=== PATIENT | male | born 1940 | race Caucasian/White ===

== ENCOUNTER 2016-12-18 18:16 | Inpatient (IN) | payer MEDICARE, MEDICAID ==
[~2016-12-18] VITALS: Ht 185.4 cm; Wt 113.6 kg
[~2016-12-18 18:16] MED LIST: ASCO500T8 PO; ATOR20TA PO; CARV25TA2 PO; CLOP75TA28 PO; FERR-83 PO; HYDR-3939 PO; INSLIS SUBQ; INSU100V7 SUBQ; IPRA0.2S51 IH; ISOS60TA PO; KEN1O TOPICAL; NEOM1PAC2 TOP; NYST60PO TP; SACC250C PO; SYMINH IH; TORS100T3 PO; TRAZ150T72 PO; Vancomycin PO; ZOLP10TA5 PO
--- NOTE | 2016-12-18 18:24 | ED.REPORT ---
HPI-General Illness Date of Service December 18, 2016 ED Provider: The patient is a 75 year old male with history of diabetes mellitus, osteomyelitis, coronary artery disease, hypertension, high cholesterol, chronic kidney disease, peripheral vascular disease, CHF, and COPD, who was brought to the emergency department by EMS for a wound to his left heel that he first noticed 2-3 weeks ago. He has noticed mild pain to the area of the wound. His daughter called Dr. Tanner who the patient has previously seen. Dr. Tanner recommended evaluation in the emergency department. He denies fever, chills, myalgias, nausea, vomiting or diarrhea. His sugars have been going up and down over the last week. Nursing Notes Stated Complaint: FEVER Nursing Notes Reviewed: Yes Allergies: Coded Allergies: No Known Allergies (Verified , 08/03/14) Scheduled ([Vancomycin]) 100 MG/ML ML 125 MG PO QID Ascorbic Acid (Vitamin C) 500 Mg Tablet 500 MG PO DAILY Atorvastatin (Lipitor) 20 Mg Tablet 20 MG PO HS Budesonide/Formoterol 160-4.5 mcg Inh (Symbicort 160-4.5 mcg Inh) 1 Puff Inha 1 PUFF IH BID Carvedilol (Carvedilol) 25 Mg Tablet 25 MG PO BID Clopidogrel (Clopidogrel) 75 Mg Tablet 75 MG PO DAILY Ferrous Sulfate (Ferrous Sulfate) 325 Mg Tablet 325 MG PO DAILY Hydralazine (Hydralazine) 25 Mg Tablet 25 MG PO TID Insulin Glargine (Lantus U100 Insulin Vial) 100 Unit/Ml Vial 35 UNIT SUBQ QAM Insulin Human Lispro (HumaLOG U100 Insulin Vial) 100 Unit/Ml Unit 10 UNIT SUBQ TIDAC Blood Sugar Lispro Correction <151 0 units 151-175 1 unit 176-200 2 units 201-225 3 units 226-250 4 units 251-275 5 units 276-300 6 units 301-325 7 units 326-350 8 units 351-375 9 units 376-400 10 units >400 12 units Check blood sugars before meals and at bedtime. Use correction factor only before meals. Ipratropium [place] (Ipratropium [place] Inhalant Solution) 0.2 Mg/1 Ml Solution 2.5 ML IH QID Isosorbide Mononitrate (Imdur) 60 Mg Tab.sr.24h 60 MG PO DAILY Nystatin (Nystop) 60 Gm Powder 60 GM TP BID Saccharomyces Boulardii (Florastor) 250 Mg Capsule 250 MG PO BID Torsemide (Torsemide) 100 Mg Tablet 100 MG PO BIDF Trazodone (Trazodone) 150 Mg Tablet 75 MG PO HS Triamcinolone Acet (Triamcinolone Acetonide Ointment) 1 Applic/0.25 Gm Oint 1 APPLIC TOPICAL TID Scheduled PRN Insulin Human Lispro (HumaLOG U100 Insulin Vial) 100 Unit/Ml Unit UNIT SUBQ SS PRN PRN hyperglycemia Blood Sugar Lispro Correction <151 0 units 151-175 1 unit 176-200 2 units 201-225 3 units 226-250 4 units 251-275 5 units 276-300 6 units 301-325 7 units 326-350 8 units 351-375 9 units 376-400 10 units >400 12 units Check blood sugars before meals and at bedtime. Use correction factor only before meals. Neomy Sulf/Bacitra/Polymyxin B (Triple Antibiotic Ointment) 1 Appl/0.9 Gm Packet 1 APPL TOP DAILY PRN PRN rash Zolpidem (Zolpidem) 10 Mg Tablet 10 MG PO HS PRN PRN For Insomnia General Time Seen by MD: 18:24 Chief Complaint Other (heel wound) Hx Obtained From: Patient, EMS Arrived By: Ambulance Sudden in Onset?: No Onset Occurred: More than a week ago... Symptom Duration: Since onset Location: : Foot left Quality: Painful Severity: Current: Mild Severity: Maximum: Mild Recent Healthcare: No recent hospitalization Similar Sx Previous: Yes Past Medical History Past Medical History Notes: PCP: Dr. Perkins Past Medical History 1. Coronary artery disease with history of bypass grafting. 2. Ischemic cardiomyopathy with ejection fraction 40%, status post AICD placement. 3. Chronic systolic congestive heart failure. 4. Peripheral vascular disease, status post right BKA and status post multiple angioplasty procedures to the left lower extremity. 5. Chronic left lower extremity wound followed, by Dr. Tanner [facility]. 6. Chronic kidney disease, reportedly stage 3. 7. Hypertension. 8. High cholesterol. 9. 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 10. Psoriasis. 11. MRSA bacteremia in May 2013 secondary to left lower extremity cellulitis. 12. Osteomyelitis, left 2nd toe, status post amputation May 2013. 13. Anemia. 14. COPD and chronic bronchitis, per records. 15. Chronically elevated troponin. 16. Hospitalization in December 2013 for hyperkalemia thought secondary to SOBIA inhibitor. 17. irregular heart beats Past Surgical History Right BKA 1. AICD placement in 2011. 2. Coronary artery bypass grafting in 2002. 3. Right below-knee amputation. 4. Left 2nd toe amputation. 5. Remote hernia surgery. 6. Back surgery. Family History Noncontributory Smoking History Former Smoker Social History Alcohol Use: Denies alcohol use Drug Use: Denies drug use Other Social History: Good social support, Local resident Review of Systems +elevated sugar levels, wound on left heel with discharge Full Review of Systems Constitutional: Denies: Chills, Fever GI: Denies: Diarrhea, Nausea, Vomiting Musculoskeletal: Reports: Extremity pain, Denies: Myalgia Complete sys rev & neg: except as marked. Physical Exam Vital Signs Vital Signs Date Time Temp Pulse Resp B/P Pulse Ox O2 Delivery O2 Flow Rate FiO2 12/18/16 18:25 36.1 78 16 162/76 96 Room Air Initial VS: Reviewed, Vital signs abnormal Head / Eyes: Atraumatic, Normocephalic, PERRL ENT: Mucous membranes moist, Conjunctiva normal, No scleral icterus Neck: Supple, Non-tender, Full range of motion Respiratory: Breath sounds normal, Clear to auscultation, No respiratory distress Cardiovascular: Regular rate & rhythm, Heart sounds normal, Intact distal pulses Abdomen / GI: Soft, Non-tender, No guarding, No rebound, No distention Extremities: Vascular intact Skin: Warm, Dry, No cyanosis Neurologic: Alert, Oriented, Nonfocal Psychiatric: Mood/affect normal, Behavior normal, Normal thought content General/Constitutional: Awake, Alert, Well appearing Lower Extremity / Pelvis / MS: Vascular intact Right BKA. Ankle / Foot: Vascular intact There is a left heel ulcer approximately 4 cm with additional surrounding erythema. Interpretation & Diagnostics Lab Results Interpretation Result Diagram: 12/18/16192812/18/161928 Test 12/18/16 18:41 12/18/16 19:29 12/18/16 19:59 Hold Urine Received (Received) White Blood Count 11.2th/mm3 (3.8-10.1) Red Blood Count 4.51mil/mm3 (4.40-5.80) Hemoglobin 12.4g/dL (13.8-17.2) Hematocrit 35.2% (41.0-50.0) Mean Corpuscular Volume 78.0fL (81-100) Mean Corpuscular Hemoglobin 27.5pg (27.0-35.0) Mean Corpuscular Hemoglobin Concent 35.2% (32.0-37.0) Red Cell Distribution Width 13.8% (12.3-15.4) Platelet Count 294bil/L (150-400) Neutrophils (%) (Auto) 73.0% (40-74) Lymphocytes (%) (Auto) 16.4% (14-46) Monocytes (%) (Auto) 8.2% (4-12) Eosinophils (%) (Auto) 1.8% (0-5) Basophils (%) (Auto) 0.4% (0-3) Erythrocyte Sedimentation Rate 75mm/hr (0-30) Prothrombin Time 10.7sec (8.1-12.5) Prothromb Time International Ratio 1.00ratio Sodium Level 137mEq/L (134-144) Potassium Level 4.3mEq/L (3.5-5.2) Chloride Level 96mEq/L (97-108) Carbon Dioxide Level 26mmol/L (18-29) Blood Urea Nitrogen 45mg/dL (8-27) Creatinine 1.67mg/dL (0.76-1.27) Estimat Glomerular Filtration Rate 43mL/min (>59) Glucose Level 105mg/dL (60-99) Lactic Acid Level 1.2mmol/L (0.4-2.0) Calcium Level 9.9mg/dL (8.5-10.1) Magnesium Level 2.0mg/dL (1.6-2.6) Total Bilirubin 0.4mg/dL (0.0-1.2) Aspartate Amino Transf (AST/SGOT) 22U/L (0-50) Alanine Aminotransferase (ALT/SGPT) 24U/L (0-44) Alkaline Phosphatase 180U/L (25-160) Total Protein 8.2g/dL (6.4-8.4) Albumin 3.9g/dL (3.4-5.0) Urine Color Straw (YELLOW) Urine Appearance Hazy (CLEAR,HAZY) Urine pH 6.0 (5.0-8.0) Urine Specific [place] 1.015 (1.003-1.035) Urine Protein Tracemg/dL (NEG,TRACE) Urine Glucose (UA) 100mg/dL (NEGATIVE) Urine Ketones Negativemg/dL (NEGATIVE) Urine Occult Blood Small (NEGATIVE) Urine Nitrite Negative (NEGATIVE) Urine Bilirubin Negative (NEGATIVE) Urine Ictotest Negative (Negative) Urine Urobilinogen Normalmg/dL (NORMAL) Urine Leukocyte Esterase Large (NEGATIVE) Urine RBC 0-2/hpf (0-2) Urine WBC 11-50/hpf (0-5) Urine Epithelial Cells None/hpf (NONE-MOD) Urine Crystals None seen (NONE SEEN) Urine Bacteria Few/hpf (NONE-FEW) Urine Hyaline Casts None/lpf (NONE) Urine Granular Casts None seen (NONE SEEN) Urine Waxy Casts None seen (NONE SEEN) Urine Red Blood Cell Casts None seen (NONE SEEN) Urine White Blood Cell Casts None seen (NONE SEEN) Urine Mucus None seen (None Seen) Urine Trichomonas None seen (NONE SEEN) Urine Yeast None (NONE SEEN) Urinalysis Comment None Urine Culture Reflexed Indicated X-Ray Interpretation Xray Interpretation: IMPRESSION: 1. Chronic osteomyelitis sequelae involving the first digit. 2. No evidence of active osteomyelitis involving the heel. Bone scan can be performed for further assessment, if clinically indicated. Dictated by: Shivam Rios M.D. on 12/18/2016 at 19:08 X-Ray Ordered: Foot left Interpretation / Wet Read by: Interpret - Radiologist Re-Eval/Medical Decision Med Decision/Clinical Course The patient presents with worsening of his left heel ulcer. He has signs of cellulitis, at this point is to sign of osteomyelitis. The patient will need debridement of the wound and IV antibiotics. Source of Hx: Old records, EMS, Family Time of Eval: 20:30 Re-Evaluation/Progress Note: Discussed plan for admission. All questions were addressed. Consultation #1: Referral / Consult Name: Edwin Kuo DPM Call Returned at: 20:13 [employer]: Will see patient Note: Spoke with podiatry. Someone will see the patient in the morning. Consultation #2: Referral / Consult Name: Leisa Butcher DO Consulted With: Hospitalist Call Returned at: 21:05 [employer]: Will see patient, Agrees with eval, Agrees with plan, Accepts admit Counseled Regarding: Diagnosis, Lab results, Need for admission Discharge & Departure Primary Impression: Foot ulcer, left Non-pressure ulcer stage: unspecified non-pressure ulcer stage Qualified Code : L97.529 - Non-pressure chronic ulcer of other part of left foot with unspecified severity Additional Impressions: Cellulitis Site of cellulitis: extremity Site of cellulitis of extremity: lower extremity Laterality: left Qualified Code: L03.116 - Cellulitis of left lower limb Renal insufficiency Disposition: ADMITTED TO HOSPITAL Discharge Condition All VS Reviewed: Yes Condition: Stable Referrals: Sherry Perkins MD (PCP) Yenni Tanner DPM Scribe Attestation Portions of this note were transcribed by Quynh Piña. I, Dr. Giordano personally performed the history, physical exam and medical decision-making; I reviewed and confirmed the accuracy of the information in the transcribed note. Signed by: Cristian Isabel, 12/18/2016 at 2110. copies to: Yenni Tanner DPM; Sherry Perkins MD, Jena M MD December 18, 2016 18:24 Quynh Piña December 18, 2016 18:41
[2016-12-18 18:25] VITALS: BP 162/76; PULSE 78; RESP 16; O2SAT 96
[2016-12-18] MEDS ORDERED: Piperacillin-Tazo 3.375 Gm Inj 3.375 GM in Dextrose 5% Minibag Plus 50 ML IV ONE (18:40)
[2016-12-18] MEDS ORDERED: Vancomycin Dose per Pharmacist XX ONE (18:40)
[2016-12-18] MEDS ORDERED: Vancomycin Inj 1,750 MG in 0.9% Sodium Chloride 500 ML IV ONE (19:10)
--- NOTE | 2016-12-18 19:11 | DRSVH ---
PROCEDURE: X-RAY LEFT FOOT, TWO VIEWS ([id number]) INDICATIONS: heel infection TECHNIQUE: 3 views of the foot were acquired. COMPARISON: [facility], CR, XR FOOT 3VW LT, 09/30/2015, 10:38. [facility], CR, XR FOOT 3VW LT, 07/05/2015, 13:04. FINDINGS: Bones: No fractures or dislocations. Status post resection of the second and third digits. Arthrodes is of the first metatarsal phalangeal joint. Interphalangeal joint of first digit not well-seen. Soft tissues: No tibiotalar joint effusion. Achilles tendon appears normal. IMPRESSION: 1. Chronic osteomyelitis sequelae involving the first digit. 2. No evidence of active osteomyelitis involving the heel. Bone scan can be performed for further ass essment, if clinically indicated. Dictated by: Shivam Rios M.D. on 12/18/2016 at 19:08 Approved by: Shivam Rios M.D. on 12/18/2016 at 19:09
[2016-12-18 19:37] LABS: BASOPHILS % (AUTO) 0.4 % (0-3); EOSINOPHILS % (AUTO) 1.8 % (0-5); MONOCYTES % (AUTO) 8.2 % (4-12); Mean Corpuscular Hemoglobin 27.5 pg (27.0-35.0); Platelet Count 294 bil/L (150-400)
[2016-12-18] MEDS ORDERED: 0.9% Sodium Chloride 100 ML ONE (19:52)
[2016-12-18 20:37] LABS: ERYTHROCYTE SEDIMENTATION RATE 75 mm/hr (0-30)
[2016-12-18 20:47] LABS: APPEARANCE,URINE HAZY (CLEAR,HAZY); COLOR,URINE STRAW (YELLOW)
[2016-12-18 20:48] LABS: OCCULT BLOOD,URINE SMALL (NEGATIVE)
[2016-12-18 20:49] LABS: ICTOTEST,URINE NEGATIVE (Negative)
[2016-12-18 20:50] LABS: UROBILINOGEN,URINE NORMAL (NORMAL)
[2016-12-18] MEDS ORDERED: 0.9% Sodium Chloride 1,000 ML IV SCH (22:09)
[2016-12-18] MEDS ORDERED: Polyethylene Glycol (PEG) 17 Gm Powder PO PRN (22:10)
[2016-12-18] MEDS ORDERED: Ondansetron 2 mg/mL 2 mL Inj IVPUSH PRN (22:10)
[2016-12-18] MEDS ORDERED: Alum-Mag Hydrox-Simeth 30 mL Suspension PO PRN (22:10)
[2016-12-18 22:26] VITALS: BP 115/41; PULSE 70; O2SAT 95
[2016-12-18 23:06] VITALS: BP 133/73; PULSE 73; RESP 18; O2SAT 95
--- NOTE | 2016-12-18 23:09 | PCM.HPMED ---
Subjective Date of Service December 18, 2016 Primary Provider: Admitting Physician: Leisa Butcher DO Primary Care Physician: Nawaf Encinas MD Attending Physician: Leisa Butcher DO Admit Status: From the Emergency Department Chief Complaint: left foot pain History of Present Illness: 75 year old male with history of T2DM, Chronic osteomyelitis, CAD s/p CABG, HTN , chronic kidney disease, peripheral vascular disease, Right BKA, CHF, and COPD , who presented to the ED by EMS for evaluation of left heel ulcer x 2-3 weeks. Patient reports he noticed the ulcer a few weeks ago, but it recently became more painful so he reports his daughter called Dr. Tanner, his shift superintendent, who recommended patient go to the ER for further evaluation. Patient denies any associated fevers, chills, myalgias, nausea vomiting, or diarrhea. He currently uses a wheelchair for transportation and does use his left foot for transferring. He reports that his diabetes has been somewhat labile lately. He states he has been compliant with his insulin regimen, but notes that his sugars will be occasionally above 300. He has not seen his PCP, Dr. Encinas, lately, and does not remember what his last A1c was. He has not had any chest pain or increased shortness of breath. He reports he is eating and drinking well and denies any urinary symptoms. Review of Systems: complete review of system obtained and neg except as stated in history of present illness Allergies Coded Allergies: No Known Allergies (Verified , 08/03/14) Home Medications Vitamin C Atorvastatin 20 mg Symbicort twice a day Carvedilol 25 mg twice a day Clopidogrel daily Ferrous sulfate 325 mg daily Hydralazine 25 mg 3 times a day Insulin glargine 35 units subcutaneous every a.m. Insulin Humalog 10 units subcutaneous 3 times a day before meals Ipratropium 4 times a day Imdur 60 mg daily Nystatin powder twice a day Floor store tour 50 mg by mouth twice a day Torsemide 100 mg twice a day Trazodone 75 mg daily at bedtime Zolpidem 10 mg by mouth at bedtime when necessary PMH PCP: Dr. Encinas 1. Coronary artery disease with history of bypass grafting. 2. Ischemic cardiomyopathy with ejection fraction 40%, status post AICD placement. 3. Chronic systolic congestive heart failure. 4. Peripheral vascular disease, status post right BKA and status post multiple angioplasty procedures to the left lower extremity. 5. Chronic left lower extremity wound followed, by Dr. Tanner [facility]. 6. Chronic kidney disease, reportedly stage 3. 7. Hypertension. 8. High cholesterol. 9. 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 10. Psoriasis. 11. MRSA bacteremia in May 2013 secondary to left lower extremity cellulitis. 12. Osteomyelitis, left 2nd toe, status post amputation May 2013. 13. Anemia. 14. COPD and chronic bronchitis, per records. 15. Chronically elevated troponin. 16. Hospitalization in December 2013 for hyperkalemia thought secondary to SOBIA inhibitor. 17. irregular heart beats Surgical History 1. AICD placement in 2011. 2. Coronary artery bypass grafting in 2002. 3. Right below-knee amputation. 4. Left 2nd toe amputation. 5. Remote hernia surgery. 6. Back surgery. Family History Famhx of diabetes Social History Hx Alcohol Use: No Hx Substance Use: No Hx Tobacco Use: No Smoking Status: Former Smoker Living Arrangement: Alone Additional Information Lives in an apartment in [place]. He reports he cooks and cleans for himself and also administers his own medication Exam Vital Signs Vital Sign - Last Date Time Temp Pulse Resp B/P Pulse Ox O2 Delivery O2 Flow Rate FiO2 12/18/16 18:25 36.1 78 16 162/76 96 Room Air Exam Gen: Obese unkempt male laying in bed who appears in no acute distress, alert and oriented 3 HEENT: PERRLA, EOMI, oropharynx moist and pink, no dentition Neck: Soft, nontender, trachea midline CV: Regular rate and rhythm with soft systolic murmur, peripheral pulses intact in the upper extremities and equal Respiratory: CTA B, the wheezing or rhonchi, normal respiratory effort Abdomen: Soft, obese, nontender, nondistended, no rashes noted, NABS MSK: Right BKA, muscle strength grossly intact in other extremities, No swollen or tender joints Extr: left second digit amputation, DP pulse palpable, diffuse dry thickened skin with flaking, small scab on the anterior pérez, left posterior heel with 2- 3 cm ulcer with serosanguineous drainage, there is also mild periwound erythema , moderately tender to palpation, no exposed bone noted Neuro: Grossly intact, no focal weakness, light sensation intact in distal extremities Skin: Warm, dry, no other rashes besides heel ulcer Psychiatric: Appropriate mood and affect, linear thought process Lab and Diagnostics Result Diagram: 12/18/16192812/18/161928 X-Rays, CTs and MRIs PROCEDURE: X-RAY LEFT FOOT, TWO VIEWS ([id number]) IMPRESSION: 1. Chronic osteomyelitis sequelae involving the first digit. 2. No evidence of active osteomyelitis involving the heel. Bone scan can be performed for further assessment, if clinically indicated. Assessment & Plan 75 year old male with history of T2DM, Chronic osteomyelitis, CAD s/p CABG, HTN , chronic kidney disease, peripheral vascular disease, Right BKA, CHF, and COPD , who presented to the ED by EMS for evaluation of left heel ulcer x 2-3 weeks. #Left heel Ulcer with likely cellulitis, Present on Admission Podiatry has been notified and will evaluate patient in the morning. Vital signs are stable, patient does not meet sepsis criteria IV Zosyn and IV vancomycin initiated in the ED on December 18. We will plan to continue for now Wound cultures and blood cultures pending Contact precautions We will keep nothing by mouth after midnight just in case any debridement under anesthesia is required. Resume healthy/diabetic diet if no procedures required. #Possible Complicated UTI, POA Patient's urine analysis today showed large LE, and 11-50 white blood cell. Patient denies any urinary symptoms. Urine culture pending We will continue with Zosyn for now and tailor antibiotics as VIN returns. Will need antibiotics for total of 7 days #T2DM, POA Patient reports that his blood sugars have been labile recently. Check hemoglobin A1c Placed on high-dose insulin correctional scale and continue patient's 35 units of Lantus daily. Recommend diabetic education and nutrition consult #Chronic Renal Insufficiency, POA Patient's creatinine levels range between 1.3-1.6 in the past. Will plan to hydrate cautiously due to CHF history. IV NS at 75mls/hr Avoid nephrotoxic medications if possible #CAD, POA No complaints of chest pain. Will plan to resume patient's home meds once Med Rec is performed. Placed on Telemetry for CV monitoring. #Systolic CHF, POA No complains of SOB today. Benign lung exam. Continue to monitor I/Os Resume home meds #COPD, POA Will resume home inhalers Keep O2 saturations between 88-92% #History of MRSA in wounds, POA Contact Precautions ordered CODE STATUS: Full resuscitation Disposition: Patient is admitted under observation status with expected length of stay less than 2 nights due to risk of adverse effects and medical complexity Pain Evaluation: Adequate Pain Control VTE Prophylaxis: Sub-Q Heparin (Unfractionated), SCDs Resuscitation Status: CPR: Attempt Resuscitation Attending Statement The patient was seen and examined together with house staff on 12/18/2016 and I agree with the history, exam and plan as outlined in the note above. Loy Boswell DO December 18, 2016 21:39 Leisa Butcher DO December 19, 2016 05:01
[2016-12-18] MEDS ORDERED: Glucose 40% Oral Gel 15 Gm Tube PO PRN (23:10)
[2016-12-19] VITALS (10 sets, daily range): BP systolic 132–152; BP diastolic 67–72; PULSE 60–75; RESP 16–20; O2SAT 93–97
[2016-12-19] MEDS: Sodium Chloride LOK Flush 10 mL Syringe IVFLUSH SCH ×3 (00:30→16:45)
[2016-12-19] MEDS ORDERED: CARV25TA2 PO (00:32)
[2016-12-19] MEDS ORDERED: INSU100V7 SUBQ (00:38)
[2016-12-19] MEDS ORDERED: TORS100T3 PO (00:46)
[2016-12-19] MEDS ORDERED: TORS20TA3 PO (00:47)
[2016-12-19] MEDS: Heparin 5,000 Unit/mL Inj SUBQ SCH ×3 (01:08→16:47)
[2016-12-19] MEDS ORDERED: Albuterol-Ipratropium 3 mL Inhalation Solution NEB PRN (01:20)
[2016-12-19 06:41] LABS: BASOPHILS % (AUTO) 0.4 % (0-3); EOSINOPHILS % (AUTO) 3.2 % (0-5); MONOCYTES % (AUTO) 10.3 % (4-12); Mean Corpuscular Volume 80.7 fL (81-100); NEUTROPHILS % (AUTO) 69.5 % (40-74); Platelet Count 234 bil/L (150-400)
--- NOTE | 2016-12-19 07:06 | PCM.CONPHA ---
Subjective Date of Service: December 19, 2016 Requesting Provider: Loy Boswell DO left foot pain History of Present Illness diabetic foot cellulitis Reason for Pharmacy Consult: Vancomycin Dosing Objective Assessment/Plan Assessment/Plan A/ - 75 y/o male patient admitted in late last night for diabetic foot cellulitis. He has hx of CKD, DM, chronic osteomyelitis, MRSA bacteremia (2012) . Vancomycin ordered for empirical coverage - Afebrile, WBC: 11.2; foot gel-swab showed many Gram positive; Urine and Blood cultures (x2) are pending - Comitant antibiotic: Zosyn - In ED, received loading dose of Vancomycin 1750mg @1900 12/18 P/ - Give Vancomycin 750mg iv q12h. Trough level ordered before 3rd dose @1900 on 12/19. Pharmacy will follow and make necessary adjustment Thank you for consulting clinical pharmacy in the care of this patient Pamella Anthony December 19, 2016 06:52
[2016-12-19] MEDS: Vancomycin Inj 750 MG in 0.9% Sodium Chloride 250 ML IV SCH ×2 (07:58→20:15)
[2016-12-19] MEDS: Insulin LISPRO 300 Unit/3 mL Inj SUBQ SCH ×4 (08:00→22:00)
[2016-12-19] MEDS: Insulin GLARgine 100 Unit/mL Syringe SUBQ SCH (08:30)
[2016-12-19] MEDS: Vancomycin Dose per Pharmacist XX SCH (08:30)
[2016-12-19 08:53] LABS: ERYTHROCYTE SEDIMENTATION RATE 69 mm/hr (0-30)
--- NOTE | 2016-12-19 09:29 | PCM.PNMED ---
Subjective Date of Service December 19, 2016 Subjective Patient states daughter called the office, they told his daughter to send the patient to the ER. He has no fevers and chills. Dr. Tanner is debriding the foot in the room. She has no plans to take him to the OR today as she does not feel it is necessary, patient appeared apparently has lost contact with Dr. Tavarez the last few months. Dr. Tanner will be doing the wound care herself today and tomorrow, she may consider wound care consult later on. Patient states that is not nauseated, has minimal pain. No other concerns Exam Vital Signs Vital Sign - Last Date Time Temp Pulse Resp B/P Pulse Ox O2 Delivery O2 Flow Rate FiO2 12/19/16 09:16 70 12/19/16 05:43 18 96 Room Air 12/19/16 04:31 36.5 145/71 Intake and Output 12/18/16 12/18/16 12/19/16 Cumulative From/Thru 15:00 23:00 07:00 12/18/16 18:25 - 12/19/16 06:06 Intake Total 100 ml 412 ml 512 ml Output Total 850 ml 850 ml Balance 100 ml -438 ml -338 ml Intake IV Total 100 ml 412 ml 512 ml Output Urine Total 850 ml 850 ml # Bowel Movements 0 0 Exam Physical exam: Gen.: No acute distress laying in bed, absent right lower extremity HEENT: Normocephalic, tympanic Heart: Regular rhythm and rate, no S3-S4 murmurs Lungs: Clear to auscultation anteriorly and wheezes l extremities : Lef tlower leg is very slightly pink, no warmth or swelling, sloughing is noted, no edema. Absent toes 2 and 3. Heel ulcer about 4 cm, nondraining Psych: Negative anxiety Neuro: No focal deficits IVs and Medications IV Fluids normal saline 75 cc/hr Medications Reviewed: Medications were reviewed in detail Lab and Diagnostics Result Diagram: 12/19/1661612/19/16616 X-Rays, CTs and MRIs PROCEDURE: X-RAY LEFT FOOT, TWO VIEWS ([id number]) IMPRESSION: 1. Chronic osteomyelitis sequelae involving the first digit. 2. No evidence of active osteomyelitis involving the heel. Bone scan can be performed for further assessment, if clinically indicated. Assessment & Plan 75 year old male with history of T2DM, Chronic osteomyelitis, CAD s/p CABG, HTN , chronic kidney disease, peripheral vascular disease, Right BKA, CHF, and COPD , who presented to the ED by EMS for evaluation of left heel ulcer x 2-3 weeks. #Left heel Ulcer with likely cellulitis, Present on Admission Podiatry has been notified and will evaluate patient in the morning. Vital signs are stable, patient does not meet sepsis criteria IV Zosyn and IV vancomycin initiated in the ED on December 18. We will plan to continue for now Wound cultures and blood cultures pending Dr. Tavarez has seen the patient no plans to take him to the OR: Diet and home medications are resumed We will follow the cultures from ER as well as Dr. lopez debridement Chronic osteomyelitis: CT showed chronic osteo in first toe -- Antibiotics as above -- We will follow the cultures Heatt, lings anteriorly Pressure ulcer on heal Dr. Tanner wants to f/u herself and she will order wound care as needed. #Possible Complicated UTI, POA Patient's urine analysis today showed large LE, and 11-50 white blood cell. Patient denies any urinary symptoms. Urine culture pending We will continue with Zosyn for now and tailor antibiotics as VIN returns. Will need antibiotics for total of 7 days #T2DM, POA -Patient reports that his blood sugars have been labile recently. -Check hemoglobin A1c -Placed on high-dose insulin correctional scale and continue patient's 35 units of Lantus daily. -Recommend diabetic education and nutrition consult #Chronic Renal Insufficiency, POA Patient's creatinine levels range between 1.3-1.6 in the past. Will plan to hydrate cautiously due to CHF history. IV NS at 75mls/hr Avoid nephrotoxic medications if possible #CAD, POA No complaints of chest pain. Will plan to resume patient's home meds once Med Rec is performed. Placed on Telemetry for CV monitoring. #Systolic CHF, POA No complains of SOB today. Benign lung exam. Continue to monitor I/Os Resume home meds #COPD, POA Will resume home inhalers Keep O2 saturations between 88-92% #History of MRSA in wounds, POA Contact Precautions ordered CODE STATUS: Full resuscitation Disposition: Patient is admitted under observation status with expected length of stay less than 2 nights due to risk of adverse effects and medical complexity Pain Evaluation: Adequate Pain Control VTE Prophylaxis: Sub-Q Heparin (Unfractionated), SCDs Resuscitation Status: CPR: Attempt Resuscitation Alaina Garcia DO December 19, 2016 09:29
[2016-12-19] MEDS: Piperacillin-Tazo 3.375 Gm Inj 3.375 GM in Dextrose 5% Minibag Plus 50 ML IV SCH ×2 (09:47→22:09)
--- NOTE | 2016-12-19 10:16 | PCM.CHPPOD ---
Subjective Date of service December 19, 2016 History of Present Illness Patient reports seeing a small ulcer on the posterolateral heel (his usual resting spot) about 2 weeks ago. It kept getting larger. He has failed to follow up with me for preventive care after wound healing in the past. He has noticed some pain in the wound area. He had some pain and swelling in his calf and it worried him due to history of CHF and previous trips to the hospital with severe exacerbations. Allergy Allergies: Coded Allergies: No Known Allergies (Verified , 08/03/14) Medications Blood Thinners: Aspirin, Plavix Atorvastatin (Lipitor) 20 Mg Tablet 20 MG PO HS Carvedilol (Carvedilol) 25 Mg Tablet 25 MG PO DAILY Clopidogrel (Clopidogrel) 75 Mg Tablet 75 MG PO DAILY Ferrous Sulfate (Ferrous Sulfate) 325 Mg Tablet 325 MG PO DAILY Hydralazine (Hydralazine) 25 Mg Tablet 25 MG PO TID Insulin Glargine (Lantus U100 Insulin Vial) 100 Unit/Ml Vial 40 UNIT SUBQ DAILY Insulin Human Lispro (HumaLOG U100 Insulin Vial) 100 Unit/Ml Unit 10 UNIT SUBQ TIDAC Blood Sugar Lispro Correction <151 0 units 151-175 1 unit 176-200 2 units 201-225 3 units 226-250 4 units 251-275 5 units 276-300 6 units 301-325 7 units 326-350 8 units 351-375 9 units 376-400 10 units >400 12 units Check blood sugars before meals and at bedtime. Use correction factor only before meals. Insulin Human Lispro (HumaLOG U100 Insulin Vial) 100 Unit/Ml Unit UNIT SUBQ SS PRN PRN hyperglycemia Blood Sugar Lispro Correction <151 0 units 151-175 1 unit 176-200 2 units 201-225 3 units 226-250 4 units 251-275 5 units 276-300 6 units 301-325 7 units 326-350 8 units 351-375 9 units 376-400 10 units >400 12 units Check blood sugars before meals and at bedtime. Use correction factor only before meals. Torsemide (Torsemide) 100 Mg Tablet 100 MG PO DAILY Torsemide (Torsemide) 20 Mg Tablet 20 MG PO DAILY Trazodone (Trazodone) 150 Mg Tablet 75 MG PO HS Past Medical History Reviewed Admit H&P dictated by: Dr. Garcia Surgeries: Yes (BKA, lami, hernia, heart surgery) Medical History: (1) CHRONIC SYSTOLIC HRT FAILURE (2) Congestive heart failure (3) Clostridium difficile colitis (4) Renal insufficiency (5) Cellulitis (6) Foot ulcer, left (7) PRESSURE ULCER, HEEL (8) CHR ISCHEMIC HRT DIS NEC Surgical History: Social History Hx Alcohol Use: No Hx Substance Use: No Hx Tobacco Use: No Smoking Status: Former Smoker Podiatry Consult Exam Vital Signs Vital Sign - Last Date Time Temp Pulse Resp B/P Pulse Ox O2 Delivery O2 Flow Rate FiO2 12/19/16 09:16 70 12/19/16 05:43 18 96 Room Air 12/19/16 04:31 36.5 145/71 Intake and Output 12/18/16 12/18/16 12/19/16 Cumulative From/Thru 15:00 23:00 07:00 12/18/16 18:25 - 12/19/16 06:06 Intake Total 100 ml 412 ml 512 ml Output Total 850 ml 850 ml Balance 100 ml -438 ml -338 ml Intake IV Total 100 ml 412 ml 512 ml Output Urine Total 850 ml 850 ml # Bowel Movements 0 0 Result Diagram: 12/19/1617 12/19/1617 Lab Test 12/18/16 18:41 12/18/16 19:29 12/18/16 19:59 12/19/16 06:17 Hold Urine Received (Received) Prothrombin Time 10.7sec (8.1-12.5) Prothromb Time International Ratio 1.00ratio Lactic Acid Level 1.2mmol/L (0.4-2.0) Magnesium Level 2.0mg/dL (1.6-2.6) Total Bilirubin 0.4mg/dL (0.0-1.2) Aspartate Amino Transf (AST/SGOT) 22U/L (0-50) Alanine Aminotransferase (ALT/SGPT) 24U/L (0-44) Alkaline Phosphatase 180U/L (25-160) Total Protein 8.2g/dL (6.4-8.4) Albumin 3.9g/dL (3.4-5.0) Urine Color Straw (YELLOW) Urine Appearance Hazy (CLEAR,HAZY) Urine pH 6.0 (5.0-8.0) Urine Specific [place] 1.015 (1.003-1.035) Urine Protein Tracemg/dL (NEG,TRACE) Urine Glucose (UA) 100mg/dL (NEGATIVE) Urine Ketones Negativemg/dL (NEGATIVE) Urine Occult Blood Small (NEGATIVE) Urine Nitrite Negative (NEGATIVE) Urine Bilirubin Negative (NEGATIVE) Urine Ictotest Negative (Negative) Urine Urobilinogen Normalmg/dL (NORMAL) Urine Leukocyte Esterase Large (NEGATIVE) Urine RBC 0-2/hpf (0-2) Urine WBC 11-50/hpf (0-5) Urine Epithelial Cells None/hpf (NONE-MOD) Urine Crystals None seen (NONE SEEN) Urine Bacteria Few/hpf (NONE-FEW) Urine Hyaline Casts None/lpf (NONE) Urine Granular Casts None seen (NONE SEEN) Urine Waxy Casts None seen (NONE SEEN) Urine Red Blood Cell Casts None seen (NONE SEEN) Urine White Blood Cell Casts None seen (NONE SEEN) Urine Mucus None seen (None Seen) Urine Trichomonas None seen (NONE SEEN) Urine Yeast None (NONE SEEN) Urinalysis Comment None Urine Culture Reflexed Indicated White Blood Count 9.1th/mm3 (3.8-10.1) Red Blood Count 4.04mil/mm3 (4.40-5.80) Hemoglobin 11.3g/dL (13.8-17.2) Hematocrit 32.6% (41.0-50.0) Mean Corpuscular Volume 80.7fL (81-100) Mean Corpuscular Hemoglobin 28.0pg (27.0-35.0) Mean Corpuscular Hemoglobin Concent 34.7% (32.0-37.0) Red Cell Distribution Width 13.8% (12.3-15.4) Platelet Count 234bil/L (150-400) Neutrophils (%) (Auto) 69.5% (40-74) Lymphocytes (%) (Auto) 16.5% (14-46) Monocytes (%) (Auto) 10.3% (4-12) Eosinophils (%) (Auto) 3.2% (0-5) Basophils (%) (Auto) 0.4% (0-3) Erythrocyte Sedimentation Rate 69mm/hr (0-30) Sodium Level 138mEq/L (134-144) Potassium Level 3.7mEq/L (3.5-5.2) Chloride Level 99mEq/L (97-108) Carbon Dioxide Level 27mmol/L (18-29) Blood Urea Nitrogen 40mg/dL (8-27) Creatinine 1.65mg/dL (0.76-1.27) Estimat Glomerular Filtration Rate 44mL/min (>59) Glucose Level 109mg/dL (60-99) Calcium Level 9.2mg/dL (8.5-10.1) C-Reactive Protein 0.9mg/dL (0.0-0.5) Exam General: Alert, Oriented X3, Cooperative, No Acute Distress Lower Extremities: Left: Extremity pale Extremity warm Lower Extremity Pulses: Absent: Left Dorsalis Pedis Left Posterior Tibal Podiatry WOUND : Wound Location/Description Right BKA amputation stump intact. Left medial distal foot ulcer healed. His skin is dry and flaky, built up around toes, toenails significantly elongated and loose, remaining 1st, 4th, and 5th digits. Left heel ulcer measures 3cm x 2cm in size, necrotic base, small superficial subcutaneous abscess with purulent drainage. Mild odor. Periwound erythema. No lymphangitis. Healed abrasion on anterior left leg. Assessment & Plan Problems: (1) Onycholysis of toenail Plan: I cleaned ample debris under and around his toenails. I will debride the nails tomorrow. He may end up with a full avulsion of the hallux nail. Status: Acute ICD Code: L60.1 (2) Pressure ulcer, heel, left, unstageable Plan: I prepped the wound with Hibiclens and excisionally debrided the left heel ulcer with a #15 scalpel through skin and subcutaneous tissue. Final measurements 3cm x 2.7cm, 0.3cm deep. Bleeding base achieved. Some central necrosis remains and will need to be secondarily debrided after offloading is achieved tomorrow. Heel offloading foam boot ordered. A swab of the purulent material was sent to lab for culture. I suspect possible enterococcal or streptococcal organism. Wound was thoroughly cleansed with Hibiclens and saline , dressed with wound gel on gauze, Foam window, and Kerlix, heel floated on pillows. Status: Acute ICD Code: L89.620 (3) DM (diabetes mellitus) type I uncontrolled, periph vascular disorder Plan: Tight blood glucose control will be essential here and at home. NPO status discontinued. Patient will be seen again tomorrow. Plan on another 24-48 hours inpatient for antibiotics and to get cultures back. Status: Acute ICD Code: E10.51 (4) Hyperkalemia Onset Date: 05/01/2014 Status: Acute ICD Code: E87.5 VTE Prophylaxis: Sub-Q Heparin (Unfractionated), SCDs Pea, Yenni S DPM December 19, 2016 10:16
[2016-12-19] MEDS ORDERED: Vancomycin Serum Trough XX ONE (19:00)
--- NOTE | 2016-12-19 20:39 | PCM.PHAPRO ---
Progress left foot pain VANCOMYCIN DOSING PER PHARMACY DOSE: 750 MG Q12H TROUGH: 16.6 CULTURE: PENDING SCr: 1.65 A/P -Therapeutic level drawn prior to 3rd administered dose. -Will draw trough / @ 0700 to monitor for accumulation since not drawn at true steady state level. -Will monitor SCr and cultures daily Yuniel Azar, PharmD Yuniel Azar December 19, 2016 20:38
[2016-12-20] VITALS (7 sets, daily range): BP systolic 112–162; BP diastolic 58–76; PULSE 64–74; RESP 16–20; O2SAT 93–97
[2016-12-20] MEDS: Sodium Chloride LOK Flush 10 mL Syringe IVFLUSH SCH ×4 (00:22→23:46)
[2016-12-20] MEDS: Heparin 5,000 Unit/mL Inj SUBQ SCH ×3 (01:19→18:05)
[2016-12-20] MEDS: Insulin GLARgine 100 Unit/mL Syringe SUBQ SCH (08:06)
[2016-12-20 08:09] LABS: Mean Corpuscular Hemoglobin 27.4 pg (27.0-35.0); Mean Corpuscular Volume 81.6 fL (81-100)
[2016-12-20] MEDS: Insulin LISPRO 300 Unit/3 mL Inj SUBQ SCH ×4 (08:21→21:51)
[2016-12-20] MEDS: Piperacillin-Tazo 3.375 Gm Inj 3.375 GM in Dextrose 5% Minibag Plus 50 ML IV SCH ×2 (08:24→21:46)
[2016-12-20] MEDS: Vancomycin Dose per Pharmacist XX SCH (08:24)
--- NOTE | 2016-12-20 17:45 | PCM.PNPOD ---
Subjective Date of Service: December 20, 2016 Visit Information: Reason for Visit Left Heel Ulcer With Cellulitis Surgery/Surgery Date Debridement of left heel ulcer, 12/19/2016 Date of Admission: December 18, 2016 at 21:28 Subjective: Patient reports no issues with the heel today, but some sharp and intense pain in his left great toe without swelling or redness. Objective Vital Sign - Last Date Time Temp Pulse Resp B/P Pulse Ox O2 Delivery O2 Flow Rate FiO2 12/20/16 10:44 64 12/20/16 08:15 16 97 Room Air 12/20/16 08:00 36.7 151/76 Intake and Output 12/19/16 12/19/16 12/20/16 Cumulative From/Thru 15:00 23:00 07:00 12/18/16 18:25 - 12/20/16 06:15 Intake Total 1451 ml 899 ml 2862 ml Output Total 2025 ml 1025 ml 3900 ml Balance -574 ml -126 ml -1038 ml Intake Oral 1060 ml 525 ml 1585 ml IV Total 391 ml 374 ml 1277 ml Output Urine Total 2025 ml 1025 ml 3900 ml # Bowel Movements 0 0 0 Result Diagram: 12/20/16 0753 12/19/16 0617 Lab Test 12/18/16 18:41 12/18/16 19:29 12/18/16 19:59 12/19/16 06:17 Hold Urine Received (Received) Prothrombin Time 10.7sec (8.1-12.5) Prothromb Time International Ratio 1.00ratio Hemoglobin A1c 7.7% (4.8-5.6) Lactic Acid Level 1.2mmol/L (0.4-2.0) Magnesium Level 2.0mg/dL (1.6-2.6) Total Bilirubin 0.4mg/dL (0.0-1.2) Aspartate Amino Transf (AST/SGOT) 22U/L (0-50) Alanine Aminotransferase (ALT/SGPT) 24U/L (0-44) Alkaline Phosphatase 180U/L (25-160) Total Protein 8.2g/dL (6.4-8.4) Albumin 3.9g/dL (3.4-5.0) Urine Color Straw (YELLOW) Urine Appearance Hazy (CLEAR,HAZY) Urine pH 6.0 (5.0-8.0) Urine Specific [place] 1.015 (1.003-1.035) Urine Protein Tracemg/dL (NEG,TRACE) Urine Glucose (UA) 100mg/dL (NEGATIVE) Urine Ketones Negativemg/dL (NEGATIVE) Urine Occult Blood Small (NEGATIVE) Urine Nitrite Negative (NEGATIVE) Urine Bilirubin Negative (NEGATIVE) Urine Ictotest Negative (Negative) Urine Urobilinogen Normalmg/dL (NORMAL) Urine Leukocyte Esterase Large (NEGATIVE) Urine RBC 0-2/hpf (0-2) Urine WBC 11-50/hpf (0-5) Urine Epithelial Cells None/hpf (NONE-MOD) Urine Crystals None seen (NONE SEEN) Urine Bacteria Few/hpf (NONE-FEW) Urine Hyaline Casts None/lpf (NONE) Urine Granular Casts None seen (NONE SEEN) Urine Waxy Casts None seen (NONE SEEN) Urine Red Blood Cell Casts None seen (NONE SEEN) Urine White Blood Cell Casts None seen (NONE SEEN) Urine Mucus None seen (None Seen) Urine Trichomonas None seen (NONE SEEN) Urine Yeast None (NONE SEEN) Urinalysis Comment None Urine Culture Reflexed Indicated Neutrophils (%) (Auto) 69.5% (40-74) Lymphocytes (%) (Auto) 16.5% (14-46) Monocytes (%) (Auto) 10.3% (4-12) Eosinophils (%) (Auto) 3.2% (0-5) Basophils (%) (Auto) 0.4% (0-3) Sodium Level 138mEq/L (134-144) Potassium Level 3.7mEq/L (3.5-5.2) Chloride Level 99mEq/L (97-108) Carbon Dioxide Level 27mmol/L (18-29) Blood Urea Nitrogen 40mg/dL (8-27) Creatinine 1.65mg/dL (0.76-1.27) Estimat Glomerular Filtration Rate 44mL/min (>59) Glucose Level 109mg/dL (60-99) Calcium Level 9.2mg/dL (8.5-10.1) Test 12/19/16 19:10 12/20/16 07:53 Vancomycin Level Trough 16.6mcg/mL White Blood Count 8.3th/mm3 (3.8-10.1) Red Blood Count 4.30mil/mm3 (4.40-5.80) Hemoglobin 11.8g/dL (13.8-17.2) Hematocrit 35.1% (41.0-50.0) Mean Corpuscular Volume 81.6fL (81-100) Mean Corpuscular Hemoglobin 27.4pg (27.0-35.0) Mean Corpuscular Hemoglobin Concent 33.6% (32.0-37.0) Red Cell Distribution Width 13.9% (12.3-15.4) Platelet Count 237bil/L (150-400) Erythrocyte Sedimentation Rate 65mm/hr (0-30) C-Reactive Protein 1.4mg/dL (0.0-0.5) Exam General: Alert, Oriented X3, Cooperative, No Acute Distress Lower Extremities: Left: Extremity pale Extremity warm Lower Extremity Pulses: Absent: Left Dorsalis Pedis Left Posterior Tibal Podiatry WOUND : Wound Location/Description Left posterolateral pressure ulcer shows central soft necrosis, marginal new pink granulation tissue. No purulence, no odor, no periwound erythema. Left 1st, 4th and 5th toenails are elongated, lytic, and thickened. Assessment & Plan Problems: (1) Onycholysis of toenail Plan: Nail debridement x3 toes today. Status: Acute ICD Code: L60.1 (2) Pressure ulcer, heel, left, unstageable Plan: I prepped the wound with Hibiclens and selectively debrided the left heel ulcer with a #15 scalpel through skin and subcutaneous tissue. Final measurements 2.7cm x 2.6cm, 0.3cm deep. Bleeding base achieved. Some central necrosis remains and will need to be secondarily debrided after further offloading. Heel offloading foam boot ordered. Streptococcal infection identified, Vancomycin discontinued. Status: Acute ICD Code: L89.620 (3) DM (diabetes mellitus) type I uncontrolled, periph vascular disorder Plan: Tight blood glucose control will be essential here and at home. Patient will be seen again tomorrow. Plan for discharge home tomorrow with oral antibiotics and close follow up at the wound clinic in one week. I will be out of town, but he can be set up to see one of our nurse practitioners. Home health will need to be set up for dressing changes. At home, start Foam offload , Santyl to wound base, saline moistened gauze over that, then Kerlix wrap and foam offloading boot. Status: Acute ICD Code: E10.51 (4) Hyperkalemia Onset Date: 05/01/2014 Status: Acute ICD Code: E87.5 VTE Prophylaxis: Sub-Q Heparin (Unfractionated), SCDs Yenni Tanner DPM December 20, 2016 17:45
--- NOTE | 2016-12-20 20:42 | PCM.PNMED ---
Subjective Date of Service December 20, 2016 Subjective Patient is seen and examined. Dr. Tanner has seen the patient this morning and once again debrided the wound. She will be ordering wound care for AR. Patient states that the foot is actually slightly more painful now than what it was before because of the debridement. He states he uses a wheelchair to get around, it manages to be independent in his small apartment. His hope is to go back to his apartment. He denies any other concerns Exam Vital Signs Vital Sign - Last Date Time Temp Pulse Resp B/P Pulse Ox O2 Delivery O2 Flow Rate FiO2 12/20/16 17:54 36.6 66 18 143/71 96 Room Air Intake and Output 12/19/16 12/19/16 12/20/16 Cumulative From/Thru 15:00 23:00 07:00 12/18/16 18:25 - 12/20/16 06:15 Intake Total 1451 ml 899 ml 2862 ml Output Total 2025 ml 1025 ml 3900 ml Balance -574 ml -126 ml -1038 ml Intake Oral 1060 ml 525 ml 1585 ml IV Total 391 ml 374 ml 1277 ml Output Urine Total 2025 ml 1025 ml 3900 ml # Bowel Movements 0 0 0 Exam General: NAD, laying in bed, HEENT: NCAT, poor dentition Eyes: [place] conjunctivae. No ptosis, PERRL Neck: No masses, trachea midline, no thyromegaly Lungs: CTA with normal respiratory effort, no crackles or wheezes CV: RRR, no murmurs/rubs/gallops, normal PMI GI: Nondistended MSK: no digital cyanosis Skin: Warm and dry. Extremities:: Minimal edema in the left lower extremity, missing right lower extremity. Debridement changes over the big toe are visible, the heel ulcer is wrapped in dressings Psych: A&O X3, with appropriate affect IVs and Medications IV Fluids None Medications Reviewed: Medications were reviewed in detail Lab and Diagnostics Result Diagram: 12/20/16 0753 12/19/16 0617 X-Rays, CTs and MRIs PROCEDURE: X-RAY LEFT FOOT, TWO VIEWS ([id number]) IMPRESSION: 1. Chronic osteomyelitis sequelae involving the first digit. 2. No evidence of active osteomyelitis involving the heel. Bone scan can be performed for further assessment, if clinically indicated. Assessment & Plan 75 year old male with history of T2DM, Chronic osteomyelitis, CAD s/p CABG, HTN , chronic kidney disease, peripheral vascular disease, Right BKA, CHF, and COPD , who presented to the ED by EMS for evaluation of left heel ulcer x 2-3 weeks. #Left heel Ulcer with likely cellulitis, Present on Admission Podiatry has been notified and will evaluate patient in the morning. Vital signs are stable, patient does not meet sepsis criteria IV Zosyn and IV vancomycin initiated in the ED on December 18. Wound cultures and blood cultures pending: Blood cultures and GTT, bone cultures showed strep agalactiae Dr. Tavarez has seen the patient no plans to take him to the OR: Diet and home medications are resumed We will follow the cultures from ER as well as Dr. lopez debridement: Positive for group D strep agalactiae, continue Zosyn. Gentamicin was discontinued Chronic osteomyelitis: CT showed chronic osteo in first toe -- Antibiotics as above -- Consult ID for antibiotic coverage tomorrow #Possible Complicated UTI, POA: Ruled out culture did not grow any organisms Patient's urine analysis today showed large LE, and 11-50 white blood cell. Patient denies any urinary symptoms. #T2DM, POA -Patient reports that his blood sugars have been labile recently. -Check hemoglobin A1c -Placed on high-dose insulin correctional scale and continue patient's 35 units of Lantus daily. -Recommend diabetic education and nutrition consult #Chronic Renal Insufficiency, POA Patient's creatinine levels range between 1.3-1.6 in the past. Will plan to hydrate cautiously due to CHF history. Avoid nephrotoxic medications if possible #CAD, POA No complaints of chest pain. -- Continue home meds #Systolic CHF, POA No complains of SOB today. Benign lung exam. Continue home meds #COPD, POA Will resume home inhalers Keep O2 saturations between 88-92% #History of MRSA in wounds, POA Contact Precautions ordered CODE STATUS: Full resuscitation Disposition: Patient is admitted under observation status with expected length of stay less than 2 nights due to risk of adverse effects and medical complexity Pain Evaluation: Adequate Pain Control VTE Prophylaxis: Sub-Q Heparin (Unfractionated), SCDs Resuscitation Status: CPR: Attempt Resuscitation Alaina Garcia DO December 20, 2016 20:42
[2016-12-21 01:16] VITALS: BP 149/64; PULSE 83; RESP 16; O2SAT 93
[2016-12-21] MEDS: Heparin 5,000 Unit/mL Inj SUBQ SCH ×3 (01:16→16:30)
[2016-12-21 05:44] VITALS: PULSE 69
[2016-12-21 06:25] VITALS: BP 131/69; PULSE 70; RESP 17; O2SAT 93
[2016-12-21] MEDS ORDERED: Vancomycin Serum Trough XX ONE (07:00)
[2016-12-21 07:39] VITALS: PULSE 70
[2016-12-21] MEDS ORDERED: Sodium Chloride LOK Flush 10 mL Syringe IVFLUSH PRN ×2 (08:05)
[2016-12-21] MEDS ORDERED: cefTRIAXone Inj 2,000 MG in Dextrose 5% Minibag Plus 50 ML IV SCH ×2 (08:05→08:34)
[2016-12-21 08:10] VITALS: BP 159/72; PULSE 69; RESP 18; O2SAT 95
[2016-12-21] MEDS ORDERED: COLLAGENASE 250 UNIT/GM TOPICAL SCH (08:30)
[2016-12-21] MEDS: Insulin GLARgine 100 Unit/mL Syringe SUBQ SCH (08:48)
[2016-12-21] MEDS: Insulin LISPRO 300 Unit/3 mL Inj SUBQ SCH ×3 (08:50→17:30)
[2016-12-21] MEDS: Sodium Chloride LOK Flush 10 mL Syringe IVFLUSH SCH (08:52)
[2016-12-21] MEDS ORDERED: CEFT2VIA5 IJ ×2 (11:04→12:56)
--- NOTE | 2016-12-21 13:00 | PCM.DIMED ---
Discharge Instructions Date of Service December 21, 2016 Dates of Hospitalization December 18, 2016 at 21:28 Discharge Diagnosis Discharge Diagnosis Diabetic foot ulcer, L big toe chronic osteomyelitis, DM II, HTN, CKD, PVD, R BKA, CHF, COPD Diet Diabetic Activity Other (wheel chair bound, as before) Call your provider Fever or Chills, Shortness of breath, Bleeding, Chest pain, Vomitting, Excessive diarrhea, Weakness (unilateral), Other Patient Instructions Follow-up plan F/U with Dr. Tanner in 2 weeks after the completion of IV abx F/U with PCP in [address] Dr. Tanner Wound care/ Home health f/u from Dr. Tanner "He can be set up to see one of our nurse practitioners. Home health will need to be set up for dressing changes. At home, start Foam offload, Santyl to wound base, saline moistened gauze over that, then Kerlix wrap and foam offloading boot." Alaina Garcia DO December 21, 2016 11:08
[2016-12-21 15:55] VITALS: BP 140/78; PULSE 64; RESP 16; O2SAT 95
--- NOTE | 2016-12-21 23:31 | PCM.DC.MED ---
Discharge Summary Date of Service December 21, 2016 Dates of Hospitalization Date of Hospital Admission December 18, 2016 at 21:28 Date of Discharge: December 21, 2016 Providers: Admitting Physician: Leisa Butcher DO Primary Care Physician: Nawaf Encinas MD Attending Physician: eLisa Butcher DO Diagnosis at Time of Discharge Diagnosis at Time of Discharge Diabetic foot ulcer, L big toe chronic osteomyelitis, DM II, HTN, CKD, PVD, R BKA, CHF, COPD Consultations Podiatry, PT Procedures XRay, CTs & MRIs PROCEDURE: X-RAY LEFT FOOT, TWO VIEWS ([id number]) IMPRESSION: 1. Chronic osteomyelitis sequelae involving the first digit. 2. No evidence of active osteomyelitis involving the heel. Bone scan can be performed for further assessment, if clinically indicated. Brief History 75 year old male with history of T2DM, Chronic osteomyelitis, CAD s/p CABG, HTN , chronic kidney disease, peripheral vascular disease, Right BKA, CHF, and COPD , who presented to the ED by EMS for evaluation of left heel ulcer x 2-3 weeks. Patient reports he noticed the ulcer a few weeks ago, but it recently became more painful so he reports his daughter called Dr. Tanner, his unarmed security officer, who recommended patient go to the ER for further evaluation. Patient denies any associated fevers, chills, myalgias, nausea vomiting, or diarrhea. He currently uses a wheelchair for transportation and does use his left foot for transferring. He reports that his diabetes has been somewhat labile lately. He states he has been compliant with his insulin regimen, but notes that his sugars will be occasionally above 300. He has not seen his PCP, Dr. Encinas, lately, and does not remember what his last A1c was. He has not had any chest pain or increased shortness of breath. He reports he is eating and drinking well and denies any urinary symptoms. Hospital Course 75 year old male with history of T2DM, Chronic osteomyelitis, CAD s/p CABG, HTN , chronic kidney disease, peripheral vascular disease, Right BKA, CHF, and COPD , who presented to the ED by EMS for evaluation of left heel ulcer x 2-3 weeks. #Left heel Ulcer with likely cellulitis, Present on Admission Podiatry has been notified and will evaluate patient in the morning. Vital signs are stable, patient does not meet sepsis criteria IV Zosyn and IV vancomycin initiated in the ED on December 18. Wound cultures and blood cultures pending: Blood cultures and GTT, bone cultures showed strep agalactiae Dr. Tavarez has seen the patient no plans to take him to the OR: Diet and home medications are resumed We will follow the cultures from ER as well as Dr. lopez debridement: Positive for group D strep agalactiae, continue Zosyn. Gentamicin was discontinued -- Discussed antibiotics with Dr. Tanner 5/ am. She agrees to IV antibiotics ( ceftriaxone 2 g daily for 2 weeks) -- Patient declined the PICC line, ordered a midline. -- Patient to see Dr. Tavarez after 2 weeks of antibiotics in her office -- Follow-up with PCP in 2 weeks -- Wound care as scheduled by Dr. Tanner -- Dr. Kuo did further debridement and wound care this a.m. -- Patient is given a wheelchair prescription by Dr. Tanner Chronic osteomyelitis: CT showed chronic osteo in first toe -- Antibiotics as above -- Consult ID for antibiotic coverage tomorrow: Discussed this with Dr. Tanner I/ AM, she feels that this was extensively treated in the past the MRI/x-ray imaging will continue to show some changes, there is really no need to extend antibiotic therapy at this point. She did not feel that ID consult is warranted at this time #Possible Complicated UTI, POA: Ruled out culture did not grow any organisms Patient's urine analysis today showed large LE, and 11-50 white blood cell. Patient denies any urinary symptoms. #T2DM, POA -Patient reports that his blood sugars have been labile recently. -Check hemoglobin A1c -Placed on high-dose insulin correctional scale and continue patient's 35 units of Lantus daily. -Recommend diabetic education and nutrition consult #Chronic Renal Insufficiency, POA Patient's creatinine levels range between 1.3-1.6 in the past. Will plan to hydrate cautiously due to CHF history. Avoid nephrotoxic medications if possible #CAD, POA No complaints of chest pain. -- Continue home meds #Systolic CHF, POA No complains of SOB today. Benign lung exam. 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 No ptosis, PERRL Neck: No masses, trachea midline, no thyromegaly Lungs: CTA with normal respiratory effort, no crackles or wheezes CV: RRR, no murmurs/rubs/gallops, normal PMI GI: Nondistended MSK: no digital cyanosis Skin: Warm and dry. Extremities:: Minimal edema in the left lower extremity, missing right lower extremity. Debridement changes over the big toe are visible, the heel ulcer is wrapped in dressings Psych: A&O X3, with appropriate affect Test 12/18/16 18:41 12/18/16 19:29 12/18/16 19:59 12/19/16 06:17 Hold Urine Received (Received) Prothrombin Time 10.7sec (8.1-12.5) Prothromb Time International Ratio 1.00ratio Hemoglobin A1c 7.7% (4.8-5.6) Lactic Acid Level 1.2mmol/L (0.4-2.0) Magnesium Level 2.0mg/dL (1.6-2.6) Total Bilirubin 0.4mg/dL (0.0-1.2) Aspartate Amino Transf (AST/SGOT) 22U/L (0-50) Alanine Aminotransferase (ALT/SGPT) 24U/L (0-44) Alkaline Phosphatase 180U/L (25-160) Total Protein 8.2g/dL (6.4-8.4) Albumin 3.9g/dL (3.4-5.0) Urine Color Straw (YELLOW) Urine Appearance Hazy (CLEAR,HAZY) Urine pH 6.0 (5.0-8.0) Urine Specific [place] 1.015 (1.003-1.035) Urine Protein Tracemg/dL (NEG,TRACE) Urine Glucose (UA) 100mg/dL (NEGATIVE) Urine Ketones Negativemg/dL (NEGATIVE) Urine Occult Blood Small (NEGATIVE) Urine Nitrite Negative (NEGATIVE) Urine Bilirubin Negative (NEGATIVE) Urine Ictotest Negative (Negative) Urine Urobilinogen Normalmg/dL (NORMAL) Urine Leukocyte Esterase Large (NEGATIVE) Urine RBC 0-2/hpf (0-2) Urine WBC 11-50/hpf (0-5) Urine Epithelial Cells None/hpf (NONE-MOD) Urine Crystals None seen (NONE SEEN) Urine Bacteria Few/hpf (NONE-FEW) Urine Hyaline Casts None/lpf (NONE) Urine Granular Casts None seen (NONE SEEN) Urine Waxy Casts None seen (NONE SEEN) Urine Red Blood Cell Casts None seen (NONE SEEN) Urine White Blood Cell Casts None seen (NONE SEEN) Urine Mucus None seen (None Seen) Urine Trichomonas None seen (NONE SEEN) Urine Yeast None (NONE SEEN) Urinalysis Comment None Urine Culture Reflexed Indicated Neutrophils (%) (Auto) 69.5% (40-74) Lymphocytes (%) (Auto) 16.5% (14-46) Monocytes (%) (Auto) 10.3% (4-12) Eosinophils (%) (Auto) 3.2% (0-5) Basophils (%) (Auto) 0.4% (0-3) Sodium Level 138mEq/L (134-144) Potassium Level 3.7mEq/L (3.5-5.2) Chloride Level 99mEq/L (97-108) Carbon Dioxide Level 27mmol/L (18-29) Blood Urea Nitrogen 40mg/dL (8-27) Creatinine 1.65mg/dL (0.76-1.27) Estimat Glomerular Filtration Rate 44mL/min (>59) Glucose Level 109mg/dL (60-99) Calcium Level 9.2mg/dL (8.5-10.1) Test 12/20/16 07:53 12/21/16 06:00 White Blood Count 8.3th/mm3 (3.8-10.1) Red Blood Count 4.30mil/mm3 (4.40-5.80) Hemoglobin 11.8g/dL (13.8-17.2) Hematocrit 35.1% (41.0-50.0) Mean Corpuscular Volume 81.6fL (81-100) Mean Corpuscular Hemoglobin 27.4pg (27.0-35.0) Mean Corpuscular Hemoglobin Concent 33.6% (32.0-37.0) Red Cell Distribution Width 13.9% (12.3-15.4) Platelet Count 237bil/L (150-400) Erythrocyte Sedimentation Rate 62mm/hr (0-30) C-Reactive Protein 1.3mg/dL (0.0-0.5) Vancomycin Level Trough 11.8mcg/mL Discharge Medications Discharge Medications Atorvastatin (Lipitor) 20 Mg Tablet 20 MG PO HS Prescribed by: CARL GARCIA DO Carvedilol (Carvedilol) 25 Mg Tablet 25 MG PO DAILY (Reported) Ceftriaxone Sodium (Ceftriaxone) 2 Gm Vial 2 GM IJ DAILY Prescribed by: ALAINA FLANAGAN DO Clopidogrel (Clopidogrel) 75 Mg Tablet 75 MG PO DAILY (Reported) Ferrous Sulfate (Ferrous Sulfate) 325 Mg Tablet 325 MG PO DAILY Prescribed by: CARL GARCIA DO Hydralazine (Hydralazine) 25 Mg Tablet 25 MG PO TID Prescribed by: CARL GARCIA DO Insulin Glargine (Lantus U100 Insulin Vial) 100 Unit/Ml Vial 40 UNIT SUBQ DAILY (Reported) Insulin Human Lispro (HumaLOG U100 Insulin Vial) 100 Unit/Ml Unit 10 UNIT SUBQ TIDAC (Reported) Blood Sugar Lispro Correction <151 0 units 151-175 1 unit 176-200 2 units 201-225 3 units 226-250 4 units 251-275 5 units 276-300 6 units 301-325 7 units 326-350 8 units 351-375 9 units 376-400 10 units >400 12 units Check blood sugars before meals and at bedtime. Use correction factor only before meals. Torsemide (Torsemide) 100 Mg Tablet 100 MG PO DAILY (Reported) Torsemide (Torsemide) 20 Mg Tablet 20 MG PO DAILY (Reported) Trazodone (Trazodone) 150 Mg Tablet 75 MG PO HS Prescribed by: CARL GARCIA DO As needed Insulin Human Lispro (HumaLOG U100 Insulin Vial) 100 Unit/Ml Unit UNIT SUBQ SS PRN PRN hyperglycemia (Reported) Blood Sugar Lispro Correction <151 0 units 151-175 1 unit 176-200 2 units 201-225 3 units 226-250 4 units 251-275 5 units 276-300 6 units 301-325 7 units 326-350 8 units 351-375 9 units 376-400 10 units >400 12 units Check blood sugars before meals and at bedtime. Use correction factor only before meals. Followup Plan Follow-up plan F/U with Dr. Tanner in 2 weeks after the completion of IV abx F/U with PCP in 2 weeks sfter he sees Dr. Tanner Wound care/ Home health f/u from Dr. Tanner "He can be set up to see one of our nurse practitioners. Home health will need to be set up for dressing changes. At home, start Foam offload, Santyl to wound base, saline moistened gauze over that, then Kerlix wrap and foam offloading boot. Discharge Diet: Diabetic Discharge Activity: Other (wheel chair bound, as before) Time spent 30 min Alaina Flanagan DO December 21, 2016 13:04
== END 2016-12-21 17:32 | disposition home health service (06) | DRG 623 ==
LOC: SED 18:16 → OBSVTOIN 21:28 → MOC 21:28
PROVIDERS: ADMIT Internal Medicine; ATTEND Internal Medicine
PROC: 0JBR0ZZ Excision of Left Foot Subcutaneous Tissue and Fascia, Open Approach (ICD-10-PCS; principal; 2016-12-19)
PROC: 0HBRXZZ Excision of Toe Nail, External Approach (ICD-10-PCS; 2016-12-21)
PROC: 0HBRXZZ Excision of Toe Nail, External Approach (ICD-10-PCS; 2016-12-21)
PROC: 0HBRXZZ Excision of Toe Nail, External Approach (ICD-10-PCS; 2016-12-21)
DX: E11.621 Type 2 diabetes mellitus with foot ulcer (principal); I50.22 Chronic systolic (congestive) heart failure; M86.672 Other chronic osteomyelitis, left ankle and foot; N18.3 Chronic kidney disease, stage 3 (moderate); I12.9 Hypertensive chronic kidney disease with stage 1 through stage 4 chronic kidney disease, or unspecified chronic kidney disease; L60.1 Onycholysis; E11.65 Type 2 diabetes mellitus with hyperglycemia; I73.9 Peripheral vascular disease, unspecified; E87.5 Hyperkalemia; I25.5 Ischemic cardiomyopathy; E11.40 Type 2 diabetes mellitus with diabetic neuropathy, unspecified; I25.10 Atherosclerotic heart disease of native coronary artery without angina pectoris; E78.5 Hyperlipidemia, unspecified; B95.1 Streptococcus, group B, as the cause of diseases classified elsewhere; B96.89 Other specified bacterial agents as the cause of diseases classified elsewhere; J44.9 Chronic obstructive pulmonary disease, unspecified; Z79.4 Long term (current) use of insulin; Z95.810 Presence of automatic (implantable) cardiac defibrillator; Z99.3 Dependence on wheelchair; Z89.511 Acquired absence of right leg below knee; Z86.14 Personal history of Methicillin resistant Staphylococcus aureus infection